=== PATIENT | male | born 1955 | race Caucasian/White ===

== ENCOUNTER 2020-11-03 22:16 | Inpatient (IN) | payer MEDICARE, MEDICAID ==
[~2020-11-03] VITALS: Ht 182.9 cm; Wt 63.0 kg
--- NOTE | 2020-11-03 22:41 | NUR ---
PT RESTINGIN BED, GHIVEN BLANKET AND URINAL, NO COMPLAINTS, VSS
[2020-11-03 23:16] LABS: BASOPHILS % (AUTO) 1 % (0-1); EOSINOPHILS % (AUTO) 2 % (1-7); LYMPHOCYTES % (AUTO) 37 % (22-44); MD NO; MEAN CORPUSCULAR HEMOGLOBIN 33.4 pg (27.5-34.5); MEAN CORPUSCULAR HGB CONC 33.3 g/dL (33.2-36.2); MEAN PLATELET VOLUME 6.6 fL (7.4-10.4); MONOCYTES % (AUTO) 11 % (2-9); NEUTROPHILS % (AUTO) 51 % (42-75); PLATELET COUNT 285 x10^3/uL (130-400); RED BLOOD COUNT 3.54 x10^6/uL (4.38-5.82); RED CELL DISTRIBUTION WIDTH 18.5 % (9.4-14.8)
[2020-11-03] MEDS ORDERED: CEFTRIAXONE PMX 1GM/50ML 50 ML ONE (23:25)
[2020-11-03] MEDS ORDERED: CEFTRIAXONE PMX 1GM/50ML 50 ML IVPB ONE (23:30)
[2020-11-03] MEDS ORDERED: CEFTRIAXONE 500 MG in DEXTROSE 5% 50 ML IV ONE (23:30)
[2020-11-03] MEDS ORDERED: ERYTHROMYCIN OPHTH 0.5%, 1GM LEFTEYE SCH (23:30)
[2020-11-03 23:38] LABS: ANION GAP 9 mmol/L (5-15); CALCIUM 8.5 mg/dL (8.5-10.1); CHLORIDE 111 mmol/L (98-107); CREATININE 0.66 mg/dL (0.7-1.3)
[2020-11-04] MEDS ORDERED: SODIUM CHLORIDE FLUSH 10ML SYR IVF PRN
--- NOTE | 2020-11-04 00:14 | NUR ---
report called to windy pt sleeping in bed vss, no complaints
[2020-11-04] MEDS ORDERED: THIAMINE 200 MG in SODIUM CHLORIDE 0.9% 50 ML IV ONE (01:00)
[2020-11-04] MEDS ORDERED: CEFTRIAXONE PMX 2GM/50ML 50 ML IV SCH (01:00)
[2020-11-04] MEDS ORDERED: ONDANSETRON 2MG/ML, 2ML IVPush PRN (01:00)
[2020-11-04] MEDS ORDERED: MELATONIN 5 MG TABLET PO PRN (01:00)
[2020-11-04] MEDS ORDERED: morphine SULFATE 10 MG/ML, 1ML IVPush PRN (01:00)
[2020-11-04] MEDS ORDERED: LABETALOL 5MG/ML, 20ML IVPush PRN (01:00)
[2020-11-04] MEDS ORDERED: ACETAMINOPHEN 325 MG TABLET PO PRN (01:00)
[2020-11-04 01:16] VITALS: BP 109/69
[2020-11-04] MEDS: ERYTHROMYCIN OPHTH 0.5%, 1GM LEFTEYE SCH ×6 (01:37→20:51)
[2020-11-04 02:29] LABS: AMPHETAMINE SCREEN, URINE Negative (Negative); BARBITURATE SCREEN, URINE Negative (Negative); BENZODIAZEPINE SCREEN, URINE Negative (Negative); CANNABINOID SCREEN, URINE Negative (Negative); COCAINE SCREEN, URINE Negative (Negative); METHADONE SCREEN, URINE Negative (Negative); OPIATE SCREEN, URINE Negative (Negative)
[2020-11-04 07:06] VITALS: BP 129/85
[2020-11-04] MEDS: THIAMINE 100MG TABLET PO/NG SCH (08:13)
[2020-11-04] MEDS: FOLIC ACID 1 MG TABLET PO SCH (08:13)
[2020-11-04] MEDS ORDERED: MULTIVITAMIN 1 TABLET PO SCH (09:00)
[2020-11-04 09:54] LABS: BASOPHILS % (AUTO) 1 % (0-1); EOSINOPHILS % (AUTO) 1 % (1-7); LYMPHOCYTES % (AUTO) 23 % (22-44); MEAN CORPUSCULAR HEMOGLOBIN 34.4 pg (27.5-34.5); MEAN CORPUSCULAR HGB CONC 34.1 g/dL (33.2-36.2); MONOCYTES % (AUTO) 10 % (2-9); NEUTROPHILS % (AUTO) 65 % (42-75); PLATELET COUNT 279 x10^3/uL (130-400); RED BLOOD COUNT 3.14 x10^6/uL (4.38-5.82); RED CELL DISTRIBUTION WIDTH 18.2 % (9.4-14.8)
[2020-11-04] MEDS ORDERED: LORazepam 2 MG/ML, 1ML IV PRN ×6 (10:00)
[2020-11-04 10:04] LABS: ALANINE AMINOTRANSFERASE 65 U/L (12-78); ALBUMIN 2.9 g/dL (3.4-5.0); ANION GAP 8 mmol/L (5-15); CALCIUM 8.4 mg/dL (8.5-10.1); CHLORIDE 108 mmol/L (98-107); CREATININE 0.72 mg/dL (0.7-1.3)
[2020-11-04 10:06] LABS: ALKALINE PHOSPHATASE 75 U/L (45-117); BILIRUBIN,TOTAL 0.3 mg/dL (0.2-1.0); MD NO; TOTAL PROTEIN 6.3 g/dL (6.4-8.2)
[2020-11-04] MEDS: MAGNESIUM CHLORIDE 64 MG TABLET.DR PO SCH ×3 (10:23→20:48)
[2020-11-04] MEDS: MULTIVITAMINS/MINERALS TABLET PO SCH (10:23)
[2020-11-04 12:32] VITALS: BP 138/81
[2020-11-04] MEDS ORDERED: OXYcodone IR 5MG TABLET PO PRN (16:00)
[2020-11-04 20:11] VITALS: BP 126/73
[2020-11-04] MEDS: PIPERACILLIN/TAZO/PMX 4.5GM 100 ML IV SCH (20:48)
[2020-11-04] MEDS: LORazepam 0.5MG TABLET PO SCH (20:49)
[2020-11-05 01:05] VITALS: BP 133/79
[2020-11-05] MEDS: ERYTHROMYCIN OPHTH 0.5%, 1GM LEFTEYE SCH ×6 (01:08→17:22)
[2020-11-05] MEDS: PIPERACILLIN/TAZO/PMX 4.5GM 100 ML IV SCH ×2 (04:06→13:00)
[2020-11-05 06:16] LABS: BASOPHILS % (AUTO) 1 % (0-1); EOSINOPHILS % (AUTO) 2 % (1-7); LYMPHOCYTES % (AUTO) 25 % (22-44); MD NO; MEAN CORPUSCULAR HEMOGLOBIN 34.5 pg (27.5-34.5); MEAN CORPUSCULAR HGB CONC 34.1 g/dL (33.2-36.2); MONOCYTES % (AUTO) 9 % (2-9); NEUTROPHILS % (AUTO) 62 % (42-75); PLATELET COUNT 229 x10^3/uL (130-400); RED BLOOD COUNT 3.14 x10^6/uL (4.38-5.82); RED CELL DISTRIBUTION WIDTH 18.8 % (9.4-14.8)
[2020-11-05 06:29] LABS: ANION GAP 7 mmol/L (5-15); CALCIUM 8.4 mg/dL (8.5-10.1); CHLORIDE 108 mmol/L (98-107)
[2020-11-05 07:53] VITALS: BP 131/88
[2020-11-05] MEDS: MULTIVITAMINS/MINERALS TABLET PO SCH (09:00)
[2020-11-05] MEDS ORDERED: LINEZOLID 600 MG TABLET PO SCH (09:30)
[2020-11-05] MEDS: THIAMINE 100MG TABLET PO/NG SCH (09:44)
[2020-11-05] MEDS: MAGNESIUM CHLORIDE 64 MG TABLET.DR PO SCH ×2 (09:44→15:56)
[2020-11-05] MEDS: LORazepam 0.5MG TABLET PO SCH ×2 (09:45→15:55)
[2020-11-05] MEDS: FOLIC ACID 1 MG TABLET PO SCH (09:46)
[2020-11-05 13:52] VITALS: BP 130/78
[2020-11-05] MEDS ORDERED: ERYT1OIN5 LEFTEYE (14:40)
[2020-11-05] MEDS ORDERED: AMOX1TAB64 PO (14:40)
[2020-11-05] MEDS ORDERED: MULT-484 PO (14:40)
[2020-11-05] MEDS ORDERED: LORA-445 PO (14:40)
[2020-11-05] MEDS ORDERED: ACET325T26 PO (14:40)
[2020-11-05] MEDS ORDERED: MELA5TAB14 PO (14:40)
[2020-11-05] MEDS ORDERED: FOLI1TAB32 PO (14:40)
[2020-11-05] MEDS ORDERED: LINE600T12 PO (14:40)
[2020-11-05] MEDS ORDERED: THIA100T67 PO/NG (14:40)
== END 2020-11-05 18:34 | disposition home or self-care (01) | DRG 125 ==
LOC: ED 23:24 → EDIP 23:52 → 3N 11-04 00:45
PROVIDERS: ADMIT Family Medicine; ATTEND Internal Medicine
DX: H10.022 Other mucopurulent conjunctivitis, left eye (principal); S05.8X2A Other injuries of left eye and orbit, initial encounter; H54.7 Unspecified visual loss; D53.9 Nutritional anemia, unspecified; H20.052 Hypopyon, left eye; F10.20 Alcohol dependence, uncomplicated; F17.210 Nicotine dependence, cigarettes, uncomplicated; H16.012 Central corneal ulcer, left eye; H54.62 Unqualified visual loss, left eye, normal vision right eye; I25.10 Atherosclerotic heart disease of native coronary artery without angina pectoris; J32.9 Chronic sinusitis, unspecified; R56.9 Unspecified convulsions; Z96.642 Presence of left artificial hip joint; I25.2 Old myocardial infarction; Y93.89 Activity, other specified; Y92.89 Other specified places as the place of occurrence of the external cause; Y99.8 Other external cause status
CPT/HCPCS: 36415; 80048; 80053; 80307; 80320; 82040; 83605; 83735; 84100; 85025; 87070; 87077; 96365; 99285; G0378; J0696; J2543; J3411; G0480; J2060